=== PATIENT | female | born 2000 | race Two or more races ===

== ENCOUNTER 2021-03-17 11:59 | Observation (INO) | payer MEDICAID, OTHER ==
[~2021-03-17] VITALS: Ht 160 cm; Wt 74.0 kg
[2021-03-17] MEDS ORDERED: SODIUM CITRATE/CITRIC ACID 30 ML UDC PO ONE (12:30)
[2021-03-17] MEDS ORDERED: LACTATED RINGERS 1,000 ML IV SCH (12:30)
[2021-03-17] MEDS ORDERED: METOCLOPRAMIDE 5 MG/ML, 2ML IVPush ONE (12:30)
[2021-03-17 12:36] LABS: BASOPHILS % (AUTO) 0 % (0-1); EOSINOPHILS % (AUTO) 0 % (1-7); LYMPHOCYTES % (AUTO) 28 % (22-44); MEAN CORPUSCULAR HEMOGLOBIN 30.5 pg (27.0-34.8); MEAN CORPUSCULAR HGB CONC 33.8 g/dL (32.4-35.8); MEAN PLATELET VOLUME 7.2 fL (7.4-10.4); MONOCYTES % (AUTO) 5 % (2-9); NEUTROPHILS % (AUTO) 66 % (42-75); PLATELET COUNT 296 x10^3/uL (130-400); RED CELL DISTRIBUTION WIDTH 13.1 % (9.6-15.2)
[2021-03-17] MEDS ORDERED: SODIUM CITRATE/CITRIC ACID 15 ML UDC ONE (13:06)
[2021-03-17] MEDS ORDERED: CEFAZOLIN 1,000 MG ONE (13:57)
[2021-03-17] MEDS ORDERED: FENTANYL PF 100 MCG/2ML ONE (13:57)
[2021-03-17] MEDS ORDERED: ONDANSETRON 2MG/ML, 2ML ONE (13:57)
[2021-03-17] MEDS ORDERED: MIDAZOLAM 1 MG/ML, 5ML ONE (14:44)
== END 2021-03-17 19:58 | disposition home or self-care (01) ==
LOC: LDOP 11:59 → LDIP 12:52
PROVIDERS: ADMIT Obstetrics & Gynecology Maternal & Fetal Medicine; ATTEND Obstetrics & Gynecology Maternal & Fetal Medicine
DX: O34.31 Maternal care for cervical incompetence, first trimester (principal); Z20.822 Contact with and (suspected) exposure to COVID-19; Z3A.13 13 weeks gestation of pregnancy; Z87.59 Personal history of other complications of pregnancy, childbirth and the puerperium
CPT/HCPCS: 36415; 59320; 85025; 86850; 86900; 87635; 96361; 96374; G0378; J0690; J2250; J2405; J2765; J3010; J7120